=== PATIENT | female | born 1990 | race Hispanic/Latino ===

== ENCOUNTER 2018-05-28 07:53 | Outpatient (CLI) | payer OTHER ==
[2018-05-28] MEDS ORDERED: LACTATED RINGERS 500 ML IV ONE (07:56)
[2018-05-28 08:15] VITALS: BP 98/58
[2018-05-28] MEDS ORDERED: NORCO 5/325 PO NR (09:17)
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
--- NOTE | 2018-05-28 14:06 | Ultrasound Report ---
OB sonogram: Limited. Findings: Gestation: Single Position: Transverse and right side. Amniotic Fluid: MARTÍNEZ = 22.7. cm Placenta: Anterior Placental Grade: 1 Heart Rate: 141 BPM Gestation: 28 weeks and 5 days. No evidence of abruptio. Impression: Single viable intrauterine gestation.
--- NOTE | 2018-05-28 14:08 | Ultrasound Report ---
BIOPHYSICAL PROFILE: - breathing movements 2 to - movements 2 - posture and tone 2 - Qualitative amniotic fluid volume 8 - TOTAL SCORE OF POSSIBLE 8 Heart Rate (bpm) 145
== END 2018-05-28 13:00 | disposition home or self-care (01) ==
LOC: TRG 07:53 → LD 07:58 → TRG 13:00
PROVIDERS: ATTEND Obstetrics & Gynecology
DX: O71.89 Other specified obstetric trauma (principal); Z3A.28 28 weeks gestation of pregnancy
CPT/HCPCS: 59025; 76815; 76819; 85460; 86850; 86900; 86901